=== PATIENT | female | born 1955 | race Caucasian/White ===

== ENCOUNTER → 2023-12-03 | Outpatient (CLI) | payer MEDICARE, OTHER ==
--- NOTE | 2023-12-03 11:26 | MR ---
EXAMINATION TYPE: MR neck wo/w con DATE OF EXAM: 12/03/2023 COMPARISON: None HISTORY: Left Neck lump CONTRAST: Standard multiplanar, multisequence MRI departmental protocol images were obtained without contrast a nd with 7 mL intravenous Gadavist gadolinium contrast. FINDINGS: Markers placed over the abnormality in corresponding large right there are bilateral thyroi d measuring 1.7 cm and the right 1.5 cm. Within the left orbit there is a small nodule measuring 6 mm . Changes of mild chronic sinusitis. Cranial structures otherwise within normal limits. There is borde rline enlarged carotid space and 7 IMPRESSION: 1. Thyroid is enlarged and there are bilateral multinodular thyroid. Recommend thyroid ultrasound. 2. There is a 5 mm left orbital nodule. MRI of the orbit with contrast recommended. 3. Chronic sinusitis.
--- NOTE | 2023-12-25 17:49 | MM ---
Reason for Exam: Screening (asymptomatic). Patient History: Menarche at age 11. Patient has no children. Postmenopausal. Risk Values: Rachel 5 year model risk: 1.9%. NCI Lifetime model risk: 5.9%. Prior Study Comparison: No prior studies available for comparison. Tissue Density: The breasts are heterogeneously dense, which may obscure small masses. Findings: Analyzed By CAD. Global asymmetry upper-outer quadrant right breast. There is no persisting abnormality on 3-D images. No suspicious microcalcification or other discrete abnormality is seen. Overall Assessment: Benign, BI-RAD 2 Management: Screening Mammogram of both breasts in 1 year. . Patient should continue monthly self-breast exams. A clinical breast exam by your physician is recommended on an annual basis. This exam should not preclude additional follow-up of suspicious palpable abnormalities. Note on Rachel scores and lifetime risk: 1. A Rachel score greater than 3% is considered moderate risk. If this is the case, consider specialist referral to assess eligibility for a risk reducing agent. 2. If overall lifetime risk for the development of breast cancer is 20% or higher, the patient may qualify for future screening with alternating mammogram and breast MRI. Electronically signed and approved by: aMrc Rogers M.D. Radiologist
== END | disposition home or self-care (01) ==
LOC: RADMAMWWP 07:55
PROVIDERS: ATTEND Family Medicine
DX: Z12.31 Encounter for screening mammogram for malignant neoplasm of breast (principal); E04.2 Nontoxic multinodular goiter; J32.9 Chronic sinusitis, unspecified; R22.0 Localized swelling, mass and lump, head; H05.89 Other disorders of orbit; Z78.0 Asymptomatic menopausal state
CPT/HCPCS: 77067; 77063; 70543; A9585

== ENCOUNTER → 2024-03-01 | Outpatient (CLI) | payer MEDICARE, OTHER ==
--- NOTE | 2024-03-01 13:02 | MR ---
EXAMINATION TYPE: MR brain/orbits wo/w con DATE OF EXAM: 03/01/2024 11:35 AM CLINICAL INDICATION:Female, 68 years old with history of H05.812 CYST OF LEFT ORBIT; PHH, Left orbita l nodule seen on prior MRI 12-03-23. COMPARISON: 12/03/2023. TECHNIQUE: Multi planar, multi sequence imaging was performed through the orbits/face. Post contrast imaging was performed after the administration of 7 cc of Gadavist intravenously. FINDINGS, ORBITS: Within the intraconal fat of the left orbit is a small high FLAIR high T2/low T1 si gnal lesion measuring 8 x 5 mm with homogenous postcontrast enhancement suggested. There may be a thi n low T2 signal pseudocapsule present. Orbital contents are intact. Signal intensity of the optic ner ves are within normal limits. The intraorbital fat appears preserved. Both lacrimal glands are unre markable. The extraocular muscles appear symmetric. After administration of contrast, no abnormal enh ancement is seen. FINDINGS, BRAIN: The chow-white junctions, ventricular system, and cisterns do appear unremarkable. Diffusion-weighted imaging shows no evidence of restricted diffusion. Cavernous sinus is within nor mal limits. After administration of contrast, no abnormal enhancement is seen within the brain. The bone marrow signal is within normal limits. Paranasal sinuses and mastoid air cells: There is mucous retention cyst in the left anterior ethmoid air cell. Visualized orbits: Orbital contents are intact. IMPRESSION: 1. Left intraconal lesion favored represent a small hemangioma less likely melanoma given lower sign al on T1-weighted imaging. Short-term follow-up in 6 months recommended. MRI orbit. 2. No evidence of right intraorbital mass or significant abnormality. 3. No evidence of intracranial mass nor acute/subacute CVA accident.
== END | disposition home or self-care (01) ==
LOC: RADMRIMAIN 10:27
PROVIDERS: ATTEND Ophthalmology
DX: H05.89 Other disorders of orbit (principal); H05.812 Cyst of left orbit; F40.240 Claustrophobia
CPT/HCPCS: 70543; 70553; A9585

== ENCOUNTER → 2025-02-04 | Outpatient (CLI) | payer MEDICARE, OTHER ==
--- NOTE | 2025-02-05 07:34 | MM ---
Reason for Exam: Screening (asymptomatic). Last mammogram was performed 1 year(s) and 2 month(s) ago. Patient History: Menarche at age 11. Patient has no children. Postmenopausal. Risk Values: Rachel 5 year model risk: 1.9%. NCI Lifetime model risk: 5.6%. Prior Study Comparison: 12/03/2023 Bilateral MG 3D screening mammo w/cad, [facility]. Tissue Density: The breasts are heterogeneously dense, which may obscure small masses. Findings: Analyzed By CAD. There is no suspicious group of microcalcifications or new suspicious mass in either breast. Overall Assessment: Negative, BI-RAD 1 Management: Screening Mammogram of both breasts in 1 year. . Patient should continue monthly self-breast exams. A clinical breast exam by your physician is recommended on an annual basis. This exam should not preclude additional follow-up of suspicious palpable abnormalities. Note on Rachel scores and lifetime risk: 1. A Rachel score greater than 3% is considered moderate risk. If this is the case, consider specialist referral to assess eligibility for a risk reducing agent. 2. If overall lifetime risk for the development of breast cancer is 20% or higher, the patient may qualify for future screening with alternating mammogram and breast MRI. [facility], , 02/05/2025 7:32 AM. Electronically signed and approved by: Abelardo Shabazz M.D. Radiologis
== END | disposition home or self-care (01) ==
LOC: RADMAMWWP 15:01
PROVIDERS: ATTEND Family Medicine
DX: Z12.31 Encounter for screening mammogram for malignant neoplasm of breast (principal); R92.333 Mammographic heterogeneous density, bilateral breasts; Z78.0 Asymptomatic menopausal state
CPT/HCPCS: 77063; 77067